=== PATIENT | female | born 1980 | race Caucasian/White ===

== ENCOUNTER 2017-06-21 16:55 | Emergency (ER) | payer MEDICAID, OTHER ==
[~2017-06-21] VITALS: Ht 172.7 cm; Wt 103.0 kg
[2017-06-21 17:00] VITALS: BP 111/64
[2017-06-21] MEDS ORDERED: FAMOTIDINE 20 MG TABLET PO ONE (17:00)
[2017-06-21] MEDS ORDERED: FAMOTIDINE 20 MG TABLET ONE (17:26)
== END 2017-06-21 17:48 | disposition home or self-care (01) ==
LOC: ED 17:42
DX: T78.1XXA Other adverse food reactions, not elsewhere classified, initial encounter (principal); X58.XXXA Exposure to other specified factors, initial encounter
CPT/HCPCS: 99283; J7512

== ENCOUNTER 2017-10-29 13:58 | Emergency (ER) | payer MEDICAID ==
[~2017-10-29] VITALS: Ht 172.7 cm; Wt 107.6 kg
[2017-10-29 14:01] VITALS: BP 110/69
== END 2017-10-29 15:49 | disposition home or self-care (01) ==
LOC: ED 15:35
DX: G89.29 Other chronic pain (principal); M25.562 Pain in left knee; R20.2 Paresthesia of skin; M71.20 Synovial cyst of popliteal space [Baker], unspecified knee; D16.9 Benign neoplasm of bone and articular cartilage, unspecified; Z87.891 Personal history of nicotine dependence
CPT/HCPCS: 99284